=== PATIENT | male | born 1965 | race Caucasian/White ===

== ENCOUNTER 2017-09-04 08:12 | Emergency (ER) | payer OTHER ==
[~2017-09-04] VITALS: Ht 175.3 cm; Wt 63.5 kg
[2017-09-04 08:19] VITALS: BP 154/91; PULSE 79; RESP 16; TEMP 97.7; O2SAT 98
--- NOTE | 2017-09-04 08:31 | PD ---
HPI Chief Complaint: Numbness/Tingling Time Seen by Provider: 08:30 Travel History International Travel<30 days: No Contact w/Intl Traveler<30days: No Traveled to known affect area: No History of Present Illness HPI about 1 hrs ago patient was at work ([employer]) when his left lower lip became tingly and numb and apparently affected his speech, his boss sent him to hospital.......per patient he has had tingling to his lip since yesterday continuously. at presentation patient is speaking clearly and ambulated himself to room in emergency dept.....of note hailey has had tingling and numbness to his left LE for years and just figured it was a part of "getting old " and has not had that evaluated before. chart and rn notes reviewed pmhx: denies, but also states he doesn't go to doctors [facility] Social History Alcohol Use: Yes Tobacco Use: Yes Allergies-Medications (Allergen,Severity, Reaction): Coded Allergies: No Known Allergies (Unverified , 09/04/17) Review of Systems Except as stated in HPI: all other systems reviewed are Neg General / Constitutional: No: Fever Eyes: No: Visual changes HENT: No: Headaches Cardiovascular: No: Chest Pain or Discomfort Respiratory: No: Shortness of Breath Gastrointestinal: No: Abdominal Pain Genitourinary: No: Dysuria Musculoskeletal: No: Pain Skin: No Rash Neurologic: Positive: Paresthesia Psychiatric: No: Depression Endocrine: No: Polydipsia Hematologic/Lymphatic: No: Easy Bruising Physical Exam Narrative GENERAL: SKIN: Warm and dry. HEAD: Atraumatic. Normocephalic. EYES: Pupils equal and round. No scleral icterus. No injection or drainage. ENT: No nasal bleeding or discharge. Mucous membranes pink and moist. NECK: Trachea midline. No JVD. CARDIOVASCULAR: Regular rate and rhythm. RESPIRATORY: No accessory muscle use. Clear to auscultation. Breath sounds equal bilaterally. GASTROINTESTINAL: Abdomen soft, non-tender, nondistended. MUSCULOSKELETAL: Extremities without clubbing, cyanosis, or edema. No obvious deformities. NEUROLOGICAL: Awake and alert. No obvious cranial nerve deficits. Motor grossly within normal limits. Five out of 5 muscle strength in the arms and legs. Normal speech. PSYCHIATRIC: Appropriate mood and affect; insight and judgment normal. Data Data Last Documented VS Vital Signs Date Time Temp Pulse Resp B/P (MAP) Pulse Ox O2 Delivery O2 Flow Rate FiO2 09/04/17 11:10 09/04/17 10:30 75 16 100 Room Air 09/04/17 08:19 97.7 Orders Orders Electrocardiogram (09/04/17 08:37) Complete Blood Count With Diff (09/04/17 08:37) Comprehensive Metabolic Panel (09/04/17 08:37) Ckmb (Isoenzyme) Profile (09/04/17 08:37) Troponin I (09/04/17 08:37) B-Type Natriuretic Peptide (09/04/17 08:37) Prothrombin Time / Inr (Pt) (09/04/17 08:37) Act Partial Throm Time (Ptt) (09/04/17 08:37) Thyroid Stimulating Hormone (09/04/17 08:37) Chest, Single Ap (09/04/17 08:37) Ct Brain W/O Iv Contrast(Rout) (09/04/17 08:37) Iv Access Insert/Monitor (09/04/17 08:37) Ecg Monitoring (09/04/17 08:37) Oximetry (09/04/17 08:37) Alcohol (Ethanol) (09/04/17 08:37) Salicylates (Aspirin) (09/04/17 08:37) Tylenol (Acetaminophen) (09/04/17 08:37) Aspirin Chew (Aspirin Chew) (09/04/17 11:00) Ed Discharge Order (09/04/17 10:50) Labs Laboratory Tests Test 09/04/17 08:35 White Blood Count 5.7 TH/MM3 Red Blood Count 4.56 MIL/MM3 Hemoglobin 15.5 GM/DL Hematocrit 46.1 % Mean Corpuscular Volume 101.2 FL Mean Corpuscular Hemoglobin 34.0 PG Mean Corpuscular Hemoglobin Concent 33.6 % Red Cell Distribution Width 13.5 % Platelet Count 257 TH/MM3 Mean Platelet Volume 6.8 FL Neutrophils (%) (Auto) 33.9 % Lymphocytes (%) (Auto) 35.3 % Monocytes (%) (Auto) 8.7 % Eosinophils (%) (Auto) 20.2 % Basophils (%) (Auto) 1.9 % Neutrophils # (Auto) 1.9 TH/MM3 Lymphocytes # (Auto) 2.0 TH/MM3 Monocytes # (Auto) 0.5 TH/MM3 Eosinophils # (Auto) 1.1 TH/MM3 Basophils # (Auto) 0.1 TH/MM3 CBC Comment DIFF FINAL Differential Comment Prothrombin Time 10.1 SEC Prothromb Time International Ratio 1.0 RATIO Activated Partial Thromboplast Time 26.1 SEC Blood Urea Nitrogen 17 MG/DL Creatinine 0.76 MG/DL Random Glucose 80 MG/DL Total Protein 8.0 GM/DL Albumin 4.0 GM/DL Calcium Level 8.7 MG/DL Alkaline Phosphatase 73 U/L Aspartate Amino Transf (AST/SGOT) 34 U/L Alanine Aminotransferase (ALT/SGPT) 31 U/L Total Bilirubin 0.1 MG/DL Sodium Level 141 MEQ/L Potassium Level 3.9 MEQ/L Chloride Level 108 MEQ/L Carbon Dioxide Level 24.6 MEQ/L Anion Gap 8 MEQ/L Estimat Glomerular Filtration Rate 107 ML/MIN Total Creatine Kinase 91 U/L Troponin I LESS THAN 0.02 NG/ML B-Type Natriuretic Peptide 5 PG/ML Thyroid Stimulating Hormone 3rd Gen 0.698 uIU/ML Salicylates Level 19.1 MG/DL Acetaminophen Level LESS THAN 2.0 MCG/ML Ethyl Alcohol Level 321 MG/DL [facility] Medical Decision Making Medical Screen Exam Complete: Yes Emergency Medical Condition: Yes Medical Record Reviewed: Yes Differential Diagnosis paresthesia v tia v electrolyte v anemia v ich Narrative Course PATIENT EVALUATED THOROUGHLY AND PARESTHESIA MAY BE RELATED TO ETOH (321 ETOH LEVEL), POSSIBLY B DEFICIENCY RELATED CAUSING PARESTHESIAS...WILL D/W MEDICINE Diagnosis Primary Impression: possible TIA Additional Impression: ALCOHOL USE Admitting Information Admitting Physician Requests: Observation Referrals: [facility] FOR FURTHER EVALUATION AND NEUROLOGICAL REFERRAL Patient Instructions: General Instructions, Transient Ischemic Attack (DC) Disposition: 01 DISCHARGE HOME Condition: Stable Zheng Godoy MD Sep 04, 2017 08:31
[2017-09-04 08:40] VITALS: O2SAT 100
[2017-09-04 08:59] LABS: AUTOMATED NEUTROPHIL # 1.9 TH/MM3 (1.8-7.7); BASOPHIL # 0.1 TH/MM3 (0-0.2); BASOPHIL % 1.9 % (0.0-2.0); EOSINOPHIL # 1.1 TH/MM3 (0-0.4); EOSINOPHIL % 20.2 % (0.0-4.0); HEMATOCRIT 46.1 % (39.0-51.0); HEMO FLAGS DIFF FINAL; LYMPH % 35.3 % (9.0-44.0); MEAN CELL VOLUME 101.2 FL (80.0-100.0); MEAN CORPUSCULAR HGB CONC 33.6 % (32.0-36.0); MONO % 8.7 % (0.0-8.0); NEUT % 33.9 % (16.0-70.0); PLATELET COUNT 257 TH/MM3 (150-450); RED BLOOD COUNT 4.56 MIL/MM3 (4.50-5.90); RED CELL DISTRIBUTION WIDTH 13.5 % (11.6-17.2); WHITE BLOOD COUNT 5.7 TH/MM3 (4.0-11.0)
[2017-09-04 09:05] LABS: APTT (PATIENT) 26.1 SEC (24.3-30.1); PROTHROMBIN TIME - PATIENT 10.1 SEC (9.8-11.6)
[2017-09-04 09:20] LABS: ANION GAP 8 MEQ/L (5-15); AST (GOT) 34 U/L (15-37); BICARBONATE 24.6 MEQ/L (21.0-32.0); BLOOD UREA NITROGEN 17 MG/DL (7-18); CHLORIDE 108 MEQ/L (98-107); GLOMERULAR FILTRATION RATE 107 ML/MIN (>89); POTASSIUM 3.9 MEQ/L (3.5-5.1); SODIUM (NA) 141 MEQ/L (136-145)
[2017-09-04 09:31] LABS: ALKALINE PHOSPHATASE 73 U/L (45-117); ALT (GPT) 31 U/L (12-78); TOTAL BILIRUBIN ADULT 0.1 MG/DL (0.2-1.0)
[2017-09-04 09:33] LABS: CREATINE KINASE 91 U/L (39-308)
--- NOTE | 2017-09-04 09:33 | RADRPT ---
EXAM DATE/TIME: 09/04/2017 08:48 [facility] COMPARISON: No previous studies available for comparison. INDICATIONS : Numbness lip into left jaw and down left arm . Mid sternal chest pressure. MEDICAL HISTORY : None. SURGICAL HISTORY : None. ENCOUNTER: Initial ACUITY: 1 day PAIN SCORE: 7/10 LOCATION: Left chest FINDINGS: A single view of the chest demonstrates the lungs to be symmetrically aerated without evidence of mas s, infiltrate or effusion. The lungs are hyperinflated bilaterally. The cardiomediastinal contours a re unremarkable. Osseous structures are intact. CONCLUSION: Hyperinflation suggesting COPD. No acute infiltrate or effusion. Dashawn Ma Jr., MD on September 04, 2017 at 9:30 Board Certified Radiologist. This report was verified electronically.
[2017-09-04 09:44] LABS: ACETAMINOPHEN LESS THAN 2.0 MCG/ML (10.0-30.0)
--- NOTE | 2017-09-04 09:44 | RADRPT ---
EXAM DATE/TIME: 09/04/2017 08:59 [facility] COMPARISON: No previous studies available for comparison. INDICATIONS : Facial numbness and temporary slurred speech. RADIATION DOSE: 56.35 CTDIvol (mGy) MEDICAL HISTORY : None SURGICAL HISTORY : None. ENCOUNTER: Initial ACUITY: 1 day PAIN SCALE: 0/10 LOCATION: cranial TECHNIQUE: Multiple contiguous axial images were obtained of the head. Using automated exposure control and adj ustment of the mA and/or kV according to patient size, radiation dose was kept as low as reasonably a chievable to obtain optimal diagnostic quality images. DICOM format image data is available electro nically for review and comparison. FINDINGS: CEREBRUM: The ventricles are normal for age. No evidence of midline shift, mass lesion, hemorrhage or acute in farction. No extra-axial fluid collections are seen. POSTERIOR FOSSA: The cerebellum and brainstem are intact. The 4th ventricle is midline. The cerebellopontine angle i s unremarkable. EXTRACRANIAL: The visualized portion of the orbits is intact. SKULL: The calvaria is intact. No evidence of skull fracture. CONCLUSION: 1. No acute intracranial abnormality identified. Parish Berumen MD on September 04, 2017 at 9:41 Board Certified Radiologist. This report was verified electronically.
[2017-09-04 09:45] LABS: ALCOHOL 321 MG/DL (0-5)
[2017-09-04 10:30] VITALS: BP 138/75; PULSE 75; RESP 16; O2SAT 100
[2017-09-04] MEDS ORDERED: ASPIRIN 81 MG CHEW TAB CHEW ONE (11:00)
--- NOTE | 2017-09-04 16:04 | EKG ---
Date Performed: 09/04/2017 Time Performed: 09:55:29 PTAGE: 52 years EKG: Sinus rhythm WITH SHORT CO INTERVAL BORDERLINE RIGHT AXIS DEVIATION EARLY REPOLARIZATION BORDERLINE ECG NO PREVIOUS TRACING DOCTOR: Ayse Pillai Interpretating Date/Time 09/04/2017 16:04:12
== END 2017-09-04 11:12 | disposition home or self-care (01) ==
LOC: NEPE 08:12
DX: F10.129 Alcohol abuse with intoxication, unspecified (principal); R20.0 Anesthesia of skin; R20.2 Paresthesia of skin; Z72.0 Tobacco use
CPT/HCPCS: 70450; 71010; 80053; 80307; 82550; 83880; 84443; 84484; 85025; 85610; 85730; 93005; 99285